=== PATIENT | female | born 1985 | race Two or more races ===

== ENCOUNTER 2024-12-23 09:39 | Emergency (ER) | payer MEDICAID, SELFPAY ==
[2024-12-23 09:40] VITALS: BMI 27.9
[2024-12-23 09:55] VITALS: BP 127/87; PULSE 69; RESP 16; TEMP 36.8; O2SAT 99
--- NOTE | 2024-12-23 10:12 | XR_ITS ---
Examination: Pelvic ultrasound, transabdominal, complete Technique: Transabdominal ultrasound of the pelvis performed using grayscale imaging Date and time of exam: 12/23/2024, 10:54 AM INDICATION: Vaginal bleeding FINDINGS: Uterus measures 7.4 x 4.0 x 2.7 cm and appears normal in size and contour. Normal-appearing 7 mm endometrial stripe. Right ovary measures 3.3 cm. Left ovary measures 2.6 cm. Both ovaries appear normal in size contour and echogenicity Normal arterial flow is seen to the by lateral ovaries. No evidence of free fluid site. IMPRESSION: Normal pelvic ultrasound exam.
--- NOTE | 2024-12-23 10:13 | PD.EDFMALE ---
ED Female Urogenital RME/HPI General Chief complaint: Urogenital-Female Stated complaint: VAGINAL BLEEDING X2 WEEKS Time Seen by Provider: 12/23/24 09:44 Arrival date/time: 12/23/24 09:39 Limitations: no limitations RME / HPI RME / HPI Narrative: 39-year-old female here for vaginal bleeding x 2 weeks. States does not think she is . She is on the Nexplanon for 2-1/2 years now. States has never had this kind of bleeding before. Is worried. No history of hypothyroidism no history of fibroids no history of other gynecological issues. No fever. No syncope. States it is not heavy clots but it is similar flow to her menses. Related Data Home Medications ?Medication ?Instructions ?Recorded ?Confirmed acetaminophen 325 mg capsule 325 mg PO QID PRN 02/23/23 02/23/23 (Tylenol) Previous Rx's ?Medication ?Instructions ?Recorded medroxyprogesterone 10 mg tablet 10 mg PO QDAY #10 tabs 12/23/24 (Provera) Allergies Allergy/AdvReac Type Severity Reaction Status Date / Time No Known Allergies Allergy Verified 02/23/23 09:56 Review of Systems Review of Systems Systems Reviewed: All systems reviewed, normal except as documented Genitourinary Genitourinary: Reports as per HPI ED Exam General Limitations: Present no limitations General appearance: Present alert and in no apparent distress Eye Eye exam: Present normal appearance, PERRL and EOMI Respiratory Respiratory exam: Present normal lung sounds bilaterally Cardiovascular Cardiovascular exam: Present regular rate, normal rhythm and normal heart sounds Abdominal Exam Abdominal exam: Present soft and normal bowel sounds Extremities Exam Extremities exam: Present normal inspection and full ROM Back Exam Back exam: Present normal inspection and full ROM Psychiatric Psychiatric exam: Present normal affect and normal mood Skin Skin exam: Present warm, dry, intact and normal color Course Quality Measures none Orders Category Date Time Status US pelvic complete Stat Exams 12/23/24 10:12 Completed CBC Stat Lab 12/23/24 10:30 Completed CMP [Comprehensive Metabolic Panel] Stat Lab 12/23/24 10:30 Completed Free T4 (Free Thyroxine) Stat Lab 12/23/24 10:30 Completed HCG,Qualitative Serum Stat Lab 12/23/24 10:30 Completed TSH [Thyroid Stimulating Hormone] Stat Lab 12/23/24 10:30 Completed UA [Urinalysis] Stat Lab 12/23/24 10:28 Completed Vital Signs Vital signs: Vital Signs Temperature 98.3 F 12/23/24 09:55 Pulse Rate 69 12/23/24 09:55 Respiratory Rate 16 12/23/24 09:55 Blood Pressure 127/87 H 12/23/24 09:55 Pulse Oximetry (%) 99 12/23/24 09:55 Oxygen Delivery Method Room Air 12/23/24 09:55 Urogenital - Female Patient data External records reviewed:: [facility] previous records Clinical information provided by:: patient Social determinants that could affect healthcare access:: other (specify) (Limited access to appointments with PCP on the weekends) Patient has the following chronic illnesses:: Has Nexplanon How is presenting disease/condition affected by chronic disease/condition?: exacerbated by Evaluation data The following diagnostics were reviewed and interpreted by me:: lab results and radiology exam(s) Lab and/or radiology exams considered but not ordered:: BAILEE and bleeding factors were considered however unlikely to change the course of treatment today CT scan was also considered however started with ultrasound modality which is more appropriate for complaint today Interpretation Summary: No significant anemia labs essentially normal UA is expected for vaginal bleeding ultrasound normal no fibroids no masses Medications / Prescriptions Medications or Prescriptions considered but not ordered:: Methergine was considered however bleeding was not significant level for Methergine opted for different medication Medication administrations:: None Consultations Consultation(s) initiated? (list below): No Diagnosis Urogenital Female Differential Diagnosis: urinary tract infection, bacterial vaginosis, trichomoniasis, vaginitis, dysmenorrhea and other (Fibroid, miscarriage) Most likely diagnosis given after review of the tests above:: Dysmenorrhea Admission Indicated Admission indicated?: not indicated Admission Request Was there a request for admission?: No Disposition Plan Disposition Plan: Discharge Discharge Attestation Discharge Attestation: The patient and all family members were given an opportunity to ask questions and understood the discharge instructions. Discharge instructions specifically effects, indications for sooner follow up or return to the emergency department, and the expected course of current diagnosis. Patient condition: Stable Discharge Plan Plan Patient Disposition: HOME (Self Care) Discharge Disposition comment: Follow-up with PCP in 2 to 3 days Prescriptions/Referrals Prescriptions/Med Rec: New medroxyprogesterone [Provera] 10 mg tablet 10 mg PO QDAY Qty: 10 0RF No Action acetaminophen [Tylenol] 325 mg capsule 325 mg PO QID PRN Referrals: Pedro Nunez MD [Primary Care Provider] - In 1 week Problem List Clinical Impression: Vaginal bleeding, Dysmenorrhea Patient/Caregiver Discharge Instructions Education Materials: ED Dysfunctional Uterine Bleeding Print Language: Irish Stand Alone Forms: Mariella Award Info., Work/School Release, Patient Portal Info Letter PA/SALES REPRESENTATIVE SALES MANAGER Supervising Physician PA/SALES REPRESENTATIVE SALES MANAGER Supervising Physician: Dr. soares
[2024-12-23 10:38] LABS: Collection Type, Urine Clean Catch; WBC,Urine 0 /hpf (0-5)
[2024-12-23 10:45] LABS: Basophils # (Auto) 0.1 Thou/mm3 (0.0-0.2); Basophils % (Auto) 1 % (0-2.5); Eosinophils # (Auto) 0.2 Thou/mm3 (0.0-0.5); Eosinophils % (Auto) 3 % (0-10); Hematocrit 38.9 % (36.0-46.0); Hemoglobin 12.7 g/dL (12.0-16.0); Immature Granulocytes Auto 0.01 Thou/mm3 (0.00-0.00); Lymphocytes # (Auto) 2.3 Thou/mm3 (1.0-4.8); Lymphocytes % (Auto) 35 % (10-50); Mean Corpuscular HGB Conc 32.6 g/dl (31.0-37.0); Mean Corpuscular Hemoglobin 29.1 pg (25.0-35.0); Mean Corpuscular Volume 89 fL (80-100); Monocytes # (Auto) 0.4 Thou/mm3 (0.0-0.8); Monocytes % (Auto) 6 % (0-12); Neutrophils # (Auto) 3.7 Thou/mm3 (1.8-7.7); Neutrophils % (Auto) 55 % (37-80); Nucleated Red Blood Cell # 0.00 Thou/mm3 (0.00-0.00); Nucleated Red Blood Cell % 0 /100 WBC (0); Platelet Count 324 Thou/mm3 (140-440); RDW Standard Deviation 43.2 fL (36.4-46.3); Red Blood Count 4.37 Miln/mm3 (4.00-5.20); White Blood Count 6.6 Thou/mm3 (3.6-11.0)
[2024-12-23 10:55] LABS: Bilirubin,Urine Negative (Negative); Blood,Urine 3+ (Negative); Clarity,Urine Turbid (Clear/Hazy); Color,Urine Lt-Yellow (Lt Yel-Yel); Glucose, Urine Negative (Negative); Ketones,Urine Trace (Negative); Leukocyte Esterase,Urine Negative (Negative); Nitrite,Urine Negative (Negative); PH,Urine 7.0 (5.0-7.0); Protein,Urine Negative (Neg - Trace); RBC,Urine 548 /hpf (0-3); Specific Gravity,Urine 1.023 (1.001-1.035); Squamous Epithelial Cell,Urine 3 /hpf (0-5); Urobilinogen,Urine Negative mg/dL (0.0-1.0)
[2024-12-23 11:01] LABS: Alanine Aminotransferase 11 U/L (10-49); Albumin, Serum 4.5 gm/dL (3.5-5.0); Albumin/Globulin Ratio 1.9 (1.2-2.2); Alkaline Phosphatase 79 U/L (46-116); Anion Gap 10 (7-16); Aspartate Amino Transferase 15 U/L (0-34); BUN/Creatinine Ratio 13 Ratio (12-20); Bilirubin,Total 0.5 mg/dL (0.3-1.2); Blood Urea Nitrogen 8 mg/dL (9-23); Calcium 9.4 mg/dL (8.3-10.6); Calcium (Corrected) 9.4 mg/dL (8.5-10.1); Carbon Dioxide 25.4 mMol/L (20.0-31.0); Chloride 107 mMol/L (98-107); Creatinine (Component) 0.6 mg/dL (0.6-1.3); Estimated Creatinine Clearance 109.3 mL/min (>60); Free T4 (Free Thyroxine) 1.17 ng/dL (0.89-1.76); Globulin 2.4 gm/dL (2.3-3.5); Glucose 86 mg/dL (74-106); Osmolality,Calculated 280 (275-295); Potassium 4.3 mMol/L (3.4-5.1); Sodium 142 mMol/L (136-145); Thyroid Stimulating Hormone 1.29 uIU/mL (0.55-4.78); Total Protein 6.9 gm/dL (5.7-8.2); eGFR > 60 See Note
[2024-12-23 11:38] LABS: HCG,Qualitative Serum Negative
== END 2024-12-23 12:24 | disposition home or self-care (01) ==
PROVIDERS: Physician Assistant; Emergency Provider Family Medicine; PCP Family Medicine
DX: N93.9 Abnormal uterine and vaginal bleeding, unspecified (principal); N94.6 Dysmenorrhea, unspecified
CPT/HCPCS: 36415; 76856; 80053; 81001; 84439; 84443; 84703; 85025; 99283